=== PATIENT | male | born 1975 | race African-American/Black ===

== ENCOUNTER 2022-06-14 09:02 | Outpatient (CLI) | payer BC, SELFPAY | END 2022-06-14 09:03 | disposition home or self-care (01) | LOC: NFLDREF 06-17 11:17 | PROVIDERS: PCP Family Medicine; Referring Provider Family Medicine; Visit Provider Family Medicine | DX: Z00.00 Encounter for general adult medical examination without abnormal findings (principal); E78.5 Hyperlipidemia, unspecified; R79.89 Other specified abnormal findings of blood chemistry; Z12.5 Encounter for screening for malignant neoplasm of prostate | CPT/HCPCS: 80053; 80061; 84153 ==

== ENCOUNTER 2022-07-01 06:13 | Outpatient (CLI) | payer BC, SELFPAY | END 2022-07-01 06:14 | disposition home or self-care (01) | LOC: OP CLINIC 06:16 | PROVIDERS: PCP Family Medicine; Visit Provider Internal Medicine | DX: Z12.11 Encounter for screening for malignant neoplasm of colon (principal); K63.5 Polyp of colon; K57.30 Diverticulosis of large intestine without perforation or abscess without bleeding; K62.1 Rectal polyp | CPT/HCPCS: 45380; 45385; 88305; J2250; J3010 ==

== ENCOUNTER 2023-10-18 09:03 | Outpatient (CLI) | payer BC, SELFPAY | END 2023-10-18 09:04 | disposition home or self-care (01) | LOC: NFLDREF 10-19 07:34 | PROVIDERS: PCP Family Medicine; Referring Provider Family Medicine; Visit Provider Family Medicine | DX: Z00.00 Encounter for general adult medical examination without abnormal findings (principal); E66.01 Morbid (severe) obesity due to excess calories; R79.89 Other specified abnormal findings of blood chemistry; E78.5 Hyperlipidemia, unspecified; Z12.5 Encounter for screening for malignant neoplasm of prostate | CPT/HCPCS: 80053; 80061; G0103 ==

== ENCOUNTER 2025-02-28 09:10 | Outpatient (CLI) | payer BC, SELFPAY | END 2025-02-28 09:11 | disposition home or self-care (01) | LOC: NFLDREF 03-06 13:58 | PROVIDERS: PCP Family Medicine; Referring Provider Family Medicine; Visit Provider Family Medicine | DX: Z00.00 Encounter for general adult medical examination without abnormal findings (principal); E78.5 Hyperlipidemia, unspecified; Z12.5 Encounter for screening for malignant neoplasm of prostate | CPT/HCPCS: 80053; 80061; G0103 ==